=== PATIENT | female | born 1945 | race Caucasian/White ===

== ENCOUNTER → 2017-04-08 | Day surgery (SDC) | payer OTHER, MEDICARE ==
[~2017-04-08] VITALS: Ht 152.4 cm; Wt 82.6 kg
--- NOTE | 2017-04-22 12:05 | Operative Report ---
Operative/Inv Procedure Report Surgery Date: 04/08/17 Name of Procedure: cystoscopy: 300units botox injection in bladder for OAB Pre-Operative Diagnosis: overactive bladder Post-Operative Diagnosis: same Estimated Blood Loss: scant Surgeon/Kiln Packer: Jose Sierra MD Anesthesia: moderate sedation Complications: none Operative/Procedure Note Note: The patient was taken to the operating room and placed on the OR table in supine position. Timeout was performed in order to confirm the correct patient, procedure, and other pertienent operative information. After adequate anesthesia and antibiotics, the patient was then placed lithotomy stirrups, draped and prepped in the usual surgical fashion. The 22 syrian cystoscope with the 30 degree angle lens was inserted into the bladder without difficulty. Uretral mucosa was noted to be coapting well. The bladder appears normal without tumor/stone. Bilateral clear efflux was also noted. The cystoscope was removed after draining the bladder. Subsequently, the Botox Injection Resectoscope with 30 angle lens was inserted without difficulty. Under direct visualization, the 18-gauge cystoscopic needle was extended. Using a spiral injection patern, avoiding the trigone and area around the ureteral orifices, a total of 300 units of Botox, in small 10unit aliquots was injected into the bladder muscle/detrusor (including the dome, posterior, right and left muir of the bladder) forming a submucosal blister with each injection of botox. The bladder was then drained and the Botox cystoscope was removed without difficulty. The patient tolerated the procedure well, and was then taken to recovery room in satisfactory condition. She was discharged home with pain medication and antibiotics, and to follow up in 2 weeks' time. Discharge Disposition: Same Day Admissions CC: Jose Sierra MD
== END ==
LOC: STS 03:50
DX: N32.81 Overactive bladder (principal); R39.15 Urgency of urination; I49.3 Ventricular premature depolarization; I10 Essential (primary) hypertension; J45.909 Unspecified asthma, uncomplicated; Z87.891 Personal history of nicotine dependence
CPT/HCPCS: J0585; J0744; J1100; J2250; J2405

== ENCOUNTER → 2017-10-16 | Day surgery (SDC) | payer OTHER, MEDICARE ==
[~2017-10-16] VITALS: Ht 152.4 cm; Wt 70.8 kg
--- NOTE | 2017-10-16 13:22 | Operative Report ---
Operative/Inv Procedure Report Surgery Date: 10/16/17 Name of Procedure: cystoscopY; botox 300 units bladder injection Pre-Operative Diagnosis: overactive bladder with incontinence Post-Operative Diagnosis: same Estimated Blood Loss: scant Surgeon/Fowl Blood Tester: Jose Sierra MD Anesthesia: moderate sedation Drains: none Specimens: none Complications: none Operative/Procedure Note Note: The patient was taken to the operating room and placed on the OR table in supine position. Timeout was performed in order to confirm the correct patient, procedure, and other pertienent operative information. After adequate anesthesia and antibiotics, the patient was then placed lithotomy stirrups, draped and prepped in the usual surgical fashion. The 22 fijian cystoscope with the 30 degree angle lens was inserted into the bladder without difficulty. Uretral mucosa was noted to be coapting well. The bladder appears normal without tumor/stone. Bilateral clear efflux was also noted. The cystoscope was removed after draining the bladder. Subsequently, the Botox Injection Resectoscope with 30 angle lens was inserted without difficulty. Under direct visualization, the 18-gauge cystoscopic needle was extended. Using a spiral injection patern, avoiding the trigone and area around the ureteral orifices, a total of 300 units of Botox, in small 10unit aliquots was injected into the bladder muscle/detrusor (including the dome, posterior, right and left muir of the bladder) forming a submucosal blister with each injection of botox. The bladder was then drained and the Botox cystoscope was removed without difficulty. The patient tolerated the procedure well, and was then taken to recovery room in satisfactory condition. She was discharged home with pain medication and antibiotics, and to follow up in 2 weeks' time. Findings: normal bladder appearance Discharge Disposition: Same Day Admissions CC: Jose Sierra MD
== END ==
LOC: STS 02:10
DX: N32.81 Overactive bladder (principal); N39.44 Nocturnal enuresis; N39.498 Other specified urinary incontinence; I10 Essential (primary) hypertension; K21.9 Gastro-esophageal reflux disease without esophagitis; J45.909 Unspecified asthma, uncomplicated; I49.9 Cardiac arrhythmia, unspecified; Z87.891 Personal history of nicotine dependence
CPT/HCPCS: 36415; 82436; 93005; 93010; J0585; J2250